=== PATIENT | female | born 1965 | race Caucasian/White ===

== ENCOUNTER 2018-04-24 18:49 | Emergency (ER) | payer MEDICAID ==
[~2018-04-24] VITALS: Ht 162.6 cm; Wt 56.8 kg
[~2018-04-24 18:49] MED LIST: PERM60CR4 TOP
[2018-04-24] MEDS ORDERED: acetaminophen 325mg tablet PO ONE (21:25)
[2018-04-24 22:04] LABS: CLARITY,URINE CLOUDY (Clear); COLOR,URINE YELLOW (Yellow); GLUCOSE, URINE NEGATIVE (Neg); KETONES,URINE TRACE mg/dl (Neg); LEUKOCYTE ESTERASE ,URINE SMALL (Neg); NITRITES, URINE POSITIVE (Neg); OCCULT BLOOD,URINE MODERATE (Neg); PROTEIN,URINE TRACE mg/dl (Neg)
[2018-04-24 22:07] LABS: UA COLLECTION TYPE CLN CATCH MIDSTREAM
[2018-04-24 22:10] LABS: BACTERIA,URINE 4+ /HPF (Neg); SQUAMOUS EPITHELIAL CELL,UR MODERATE /LPF (FEW); WBC,URINE TNTC /HPF (0-4)
[2018-04-24 22:11] LABS: RBC,URINE 0-2 /HPF (0-2)
[2018-04-24] MEDS ORDERED: SULF1TAB49 PO (22:26)
[2018-04-24] MEDS ORDERED: ONDA4TAB6 PO (22:26)
[2018-04-24 22:40] VITALS: BP 145/97
--- NOTE | 2018-04-27 08:52 | NUR ---
Final culture results show resistance to Bactrim. Called Keflex 500mg. PO QID [id number] to [facility] Wilson per Dr. Hermosillo order and patient preference of pharmacy.
== END 2018-04-24 22:41 | disposition home or self-care (01) ==
LOC: ER 18:50
DX: N12 Tubulo-interstitial nephritis, not specified as acute or chronic (principal); F17.200 Nicotine dependence, unspecified, uncomplicated; Z86.73 Personal history of transient ischemic attack (TIA), and cerebral infarction without residual deficits; Z88.1 Allergy status to other antibiotic agents; Z79.2 Long term (current) use of antibiotics; Z79.899 Other long term (current) drug therapy
CPT/HCPCS: 81001; 87077; 87088; 87186; 99283

== ENCOUNTER 2024-06-10 14:23 | Emergency (ER) | payer BC ==
[~2024-06-10] VITALS: Ht 162.6 cm; Wt 57.5 kg
[~2024-06-10 14:23] MED LIST changes: +ONDA4TAB6 PO
[2024-06-10 14:27] VITALS: TEMP 97.7
[2024-06-10] MEDS ORDERED: POLOS RIGHTEYE (15:21)
[2024-06-10 15:27] VITALS: BP 108/70; PULSE 70; RESP 16; O2SAT 98
== END 2024-06-10 15:37 | disposition home or self-care (01) ==
LOC: ER 14:24
DX: H10.9 Unspecified conjunctivitis (principal); Z79.899 Other long term (current) drug therapy
CPT/HCPCS: 99283